=== PATIENT | female | born 1935 | race Caucasian/White ===

== ENCOUNTER 2018-03-30 10:44 | Inpatient (IN) | payer MEDICARE ==
[~2018-03-30] VITALS: Ht 160 cm; Wt 73.0 kg
[2018-03-30] MEDS ORDERED: BACITRACIN ZINC OINT 500U/GM, 0.9 GM ONE (10:59)
[2018-03-30] MEDS ORDERED: DIPH,PERTUSS(ACELL),TET VAC/PF 0.5 ML IM-VACC ONE ×2 (10:59→12:00)
[2018-03-30] MEDS ORDERED: DIPHTHERIA-TETANUS ADULT 0.5ML IM-VACC ONE (11:00)
[2018-03-30] MEDS ORDERED: SODIUM CHLORIDE FLUSH 10ML SYR IVF ONE (11:00)
[2018-03-30 11:50] LABS: BASOPHILS # (AUTO) 0.01 x10^3/uL (0-0.1); BASOPHILS % (AUTO) 0 % (0-1); EOSINOPHILS # (AUTO) 0.13 x10^3/uL (0-0.4); EOSINOPHILS % (AUTO) 1 % (1-7); LYMPHOCYTES # (AUTO) 1.91 x10^3/uL (1-3.4); LYMPHOCYTES % (AUTO) 14 % (22-44); MD NO; MEAN CORPUSCULAR HEMOGLOBIN 30.5 pg (27.0-34.8); MEAN CORPUSCULAR HGB CONC 33.4 g/dL (32.4-35.8); MEAN CORPUSCULAR VOLUME 91.4 fL (80-100); MEAN PLATELET VOLUME 9.3 fL (7.4-10.4); MONOCYTES # (AUTO) 0.37 x10^3/uL (0.2-0.8); MONOCYTES % (AUTO) 3 % (2-9); NEUTROPHILS # (AUTO) 11.23 x10^3/uL (1.8-6.8); NEUTROPHILS % (AUTO) 82 % (42-75); PLATELET COUNT 175 x10^3/uL (130-400); RED BLOOD COUNT 5.43 x10^6/uL (3.82-5.3); RED CELL DISTRIBUTION WIDTH 13.9 % (9.6-15.2)
[2018-03-30 11:56] LABS: INTERNATIONAL NORMALIZED RATIO 1.03 (0.93-1.1); PROTHROMBIN TIME 10.9 Seconds (9.6-11.5)
[2018-03-30 11:57] LABS: ALBUMIN 3.4 g/dL (3.4-5.0); ANION GAP 4 mmol/L (5-15); CHLORIDE 107 mmol/L (98-107); CREATININE 0.83 mg/dL (0.55-1.02)
[2018-03-30 12:00] VITALS: BP 162/79
[2018-03-30] MEDS ORDERED: GABAPENTIN 300 MG CAPSULE PO PRN (12:30)
[2018-03-30] MEDS ORDERED: morphine SULFATE 10 MG/ML, 1ML IVPush PRN (12:30)
[2018-03-30] MEDS ORDERED: ENALAPRILAT 1.25 MG/ML, 2ML IVPush PRN (12:30)
[2018-03-30] MEDS ORDERED: ACETAMINOPHEN 325 MG TABLET PO PRN (12:30)
[2018-03-30] MEDS ORDERED: LIDODERM 5% PATCH TD PRN (12:30)
[2018-03-30 12:55] VITALS: BP 162/79
[2018-03-30] MEDS: HEPARIN 5,000 UNITS/ML, 1ML SQ SCH ×2 (13:55→20:05)
[2018-03-30] MEDS: SODIUM CHLORIDE 0.9% 1,000 ML IV SCH (13:55)
[2018-03-30 15:50] VITALS: BP 169/79
[2018-03-30] MEDS: OXYcodone IR 5MG TABLET PO PRN ×2 (16:23→17:31)
[2018-03-30 18:35] VITALS: BP 146/76
[2018-03-30] MEDS ORDERED: BUPIVACAINE/PF-EPI 0.5% 1:200K ONE (20:21)
[2018-03-30] MEDS ORDERED: FENTANYL PF 100 MCG/2ML ONE ×2 (20:36→21:41)
[2018-03-30] MEDS ORDERED: ALBUTEROL/IPRATROPIUM 2.5MG/0.5MG, 3 ML NPPB PRN (21:00)
[2018-03-30] MEDS ORDERED: HYDROmorphone 2 MG/ML, 1ML IV PRN (21:00)
[2018-03-30] MEDS ORDERED: OXYcodone 5 MG/5 ML ORAL.SOL UDC PO PRN (21:00)
[2018-03-30] MEDS ORDERED: hydrALAzine 20 MG/ML, 1ML IV PRN (21:00)
[2018-03-30] MEDS ORDERED: PROCHLORPERAZINE 5 MG/ML, 2ML IV PRN (21:00)
[2018-03-30] MEDS ORDERED: LABETALOL 5MG/ML, 20ML IV PRN (21:00)
[2018-03-30] MEDS ORDERED: MEPERIDINE/PF 25MG/0.5ML IVPush PRN (21:00)
[2018-03-30] MEDS ORDERED: FENTANYL PF 100 MCG/2ML IV PRN (21:00)
[2018-03-30] MEDS ORDERED: DIPHENHYDRAMINE 50 MG/ML, 1ML IVPush PRN (21:00)
[2018-03-30] MEDS ORDERED: ESMOLOL 100 MG/10 ML ONE (21:05)
[2018-03-30] MEDS ORDERED: NEOSPORIN OINT, 15GM ONE (21:32)
[2018-03-30] MEDS ORDERED: ONDANSETRON 2MG/ML, 2ML ONE (22:19)
[2018-03-30] MEDS ORDERED: PROPOFOL 10 MG/ML, 20ML ONE (22:19)
[2018-03-30] MEDS ORDERED: GLYCOPYRROLATE 0.2MG/1ML, 5ML ONE (22:19)
[2018-03-30] MEDS ORDERED: DEXAMETHASONE 4 MG/ML, 1ML ONE (22:19)
[2018-03-30] MEDS ORDERED: NEOSTIGMINE 1 MG/ML, 10ML ONE (22:19)
[2018-03-30] MEDS ORDERED: SUCCINYLCHOLINE 20 MG/ML, 10ML ONE (22:19)
[2018-03-30] MEDS ORDERED: CEFAZOLIN 1,000 MG ONE (22:19)
[2018-03-30] MEDS ORDERED: ROCURONIUM 10MG/ML,5ML ONE (22:19)
[2018-03-30] MEDS ORDERED: OXYcodone 5 MG/5 ML ORAL.SOL UDC ONE (22:58)
[2018-03-31 00:21] VITALS: BP 117/73
[2018-03-31] MEDS: SODIUM CHLORIDE 0.9% 1,000 ML IV SCH ×3 (01:21→21:08)
[2018-03-31 04:00] VITALS: BP 96/58
[2018-03-31] MEDS ORDERED: CEFAZOLIN PMX 2GM/50ML 50 ML IVPB SCH (04:00)
[2018-03-31] MEDS: HEPARIN 5,000 UNITS/ML, 1ML SQ SCH ×3 (04:26→21:35)
[2018-03-31] MEDS ORDERED: CARB1DRO14 EACHEYE (04:47)
[2018-03-31 05:48] LABS: BASOPHILS # (AUTO) 0.01 x10^3/uL (0-0.1); BASOPHILS % (AUTO) 0 % (0-1); EOSINOPHILS # (AUTO) 0.01 x10^3/uL (0-0.4); EOSINOPHILS % (AUTO) 0 % (1-7); LYMPHOCYTES # (AUTO) 0.86 x10^3/uL (1-3.4); LYMPHOCYTES % (AUTO) 6 % (22-44); MD NO; MEAN CORPUSCULAR HEMOGLOBIN 31.1 pg (27.0-34.8); MEAN CORPUSCULAR HGB CONC 33.5 g/dL (32.4-35.8); MEAN CORPUSCULAR VOLUME 92.7 fL (80-100); MEAN PLATELET VOLUME 9.7 fL (7.4-10.4); MONOCYTES # (AUTO) 0.53 x10^3/uL (0.2-0.8); MONOCYTES % (AUTO) 4 % (2-9); NEUTROPHILS # (AUTO) 12.42 x10^3/uL (1.8-6.8); NEUTROPHILS % (AUTO) 90 % (42-75); PLATELET COUNT 160 x10^3/uL (130-400); RED CELL DISTRIBUTION WIDTH 13.9 % (9.6-15.2)
[2018-03-31 05:59] LABS: ALBUMIN 2.7 g/dL (3.4-5.0); ANION GAP 7 mmol/L (5-15); CALCIUM 7.7 mg/dL (8.5-10.1); CHLORIDE 108 mmol/L (98-107)
[2018-03-31 06:02] LABS: ALANINE AMINOTRANSFERASE 23 U/L (12-78); ALKALINE PHOSPHATASE 60 U/L (45-117); BILIRUBIN,TOTAL 0.5 mg/dL (0.2-1.0); CREATININE 0.97 mg/dL (0.55-1.02); TOTAL PROTEIN 6.3 g/dL (6.4-8.2)
[2018-03-31 06:37] VITALS: BP 102/61
[2018-03-31] MEDS: NICOTINE 21 MG/24 HR PATCH.TD24 TD SCH (09:01)
[2018-03-31] MEDS: ONDANSETRON 2MG/ML, 2ML IVPush PRN ×2 (10:16→17:33)
[2018-03-31] MEDS: OXYcodone IR 5MG TABLET PO PRN ×4 (11:36→21:35)
[2018-03-31] MEDS ORDERED: CEFAZOLIN 2,000 MG in SODIUM CHLORIDE 0.9% 50 ML IVPB SCH (13:00)
[2018-03-31 13:38] VITALS: BP 123/68
[2018-03-31 18:35] VITALS: BP 104/61
[2018-04-01 00:34] VITALS: BP 119/63
[2018-04-01] MEDS: HEPARIN 5,000 UNITS/ML, 1ML SQ SCH (04:37)
[2018-04-01] MEDS: OXYcodone IR 5MG TABLET PO PRN (04:41)
[2018-04-01 05:19] LABS: BASOPHILS # (AUTO) 0.02 x10^3/uL (0-0.1); BASOPHILS % (AUTO) 0 % (0-1); EOSINOPHILS # (AUTO) 0.12 x10^3/uL (0-0.4); EOSINOPHILS % (AUTO) 1 % (1-7); LYMPHOCYTES # (AUTO) 1.31 x10^3/uL (1-3.4); LYMPHOCYTES % (AUTO) 14 % (22-44); MD NO; MEAN CORPUSCULAR HEMOGLOBIN 30.6 pg (27.0-34.8); MEAN CORPUSCULAR VOLUME 92.9 fL (80-100); MEAN PLATELET VOLUME 10.1 fL (7.4-10.4); MONOCYTES % (AUTO) 10 % (2-9); NEUTROPHILS # (AUTO) 7.08 x10^3/uL (1.8-6.8); NEUTROPHILS % (AUTO) 75 % (42-75); PLATELET COUNT 136 x10^3/uL (130-400); RED BLOOD COUNT 3.94 x10^6/uL (3.82-5.3); RED CELL DISTRIBUTION WIDTH 14.3 % (9.6-15.2)
[2018-04-01 07:24] VITALS: BP 110/66
[2018-04-01] MEDS ORDERED: LACTULOSE 20 GM/30 ML UDC PO PRN (07:30)
[2018-04-01] MEDS: ENOXAPARIN 40 MG/0.4 ML SQ SCH (09:22)
[2018-04-01] MEDS: DOCUSATE 100 MG CAPSULE PO SCH (09:22)
[2018-04-01] MEDS: NICOTINE 21 MG/24 HR PATCH.TD24 TD SCH (09:23)
[2018-04-01 14:51] VITALS: BP 116/71
[2018-04-01 18:53] VITALS: BP 111/71
[2018-04-01] MEDS: SENNA/DOCUSATE TABLET PO SCH (20:27)
[2018-04-02 01:13] VITALS: BP 110/70
[2018-04-02 07:36] VITALS: BP 128/83
[2018-04-02] MEDS: DOCUSATE 100 MG CAPSULE PO SCH (08:55)
[2018-04-02] MEDS: ENOXAPARIN 40 MG/0.4 ML SQ SCH (08:55)
[2018-04-02] MEDS: NICOTINE 21 MG/24 HR PATCH.TD24 TD SCH (08:57)
[2018-04-02] MEDS: MAGNESIUM HYDROXIDE 8%, 30ML UDC PO SCH (12:24)
[2018-04-02 12:25] VITALS: BP 145/74
[2018-04-02 18:37] VITALS: BP 93/63
[2018-04-02] MEDS: SENNA/DOCUSATE TABLET PO SCH (19:38)
[2018-04-03 01:31] VITALS: BP 119/63
[2018-04-03 07:09] VITALS: BP 174/79
[2018-04-03] MEDS: MAGNESIUM HYDROXIDE 8%, 30ML UDC PO SCH (09:00)
[2018-04-03] MEDS: DOCUSATE 100 MG CAPSULE PO SCH (09:00)
[2018-04-03] MEDS: NICOTINE 21 MG/24 HR PATCH.TD24 TD SCH (09:22)
[2018-04-03] MEDS: ENOXAPARIN 40 MG/0.4 ML SQ SCH (09:22)
[2018-04-03] MEDS ORDERED: DOCU-131 PO (12:05)
[2018-04-03] MEDS ORDERED: ENOX40SY4 SQ (12:05)
[2018-04-03] MEDS ORDERED: ACET325T14 PO (12:05)
[2018-04-03] MEDS ORDERED: GABA300C10 PO (12:05)
[2018-04-03] MEDS ORDERED: LIDO700A20 TD (12:05)
[2018-04-03] MEDS ORDERED: NICO-487 TD (12:05)
[2018-04-03 12:48] VITALS: BP 117/73
== END 2018-04-03 16:00 | DRG 480 ==
LOC: ED 10:55 → EDIP 11:44 → UNDOADMIN 12:07 → EDIP 12:07 → 4NOR 13:15
PROVIDERS: ADMIT Hospitalist; ATTEND Hospitalist
PROC: 0QS606Z Reposition Right Upper Femur with Intramedullary Internal Fixation Device, Open Approach (ICD-10-PCS; principal; 2018-03-30 21:00)
DX: S72.141A Displaced intertrochanteric fracture of right femur, initial encounter for closed fracture (principal); J96.01 Acute respiratory failure with hypoxia; I73.9 Peripheral vascular disease, unspecified; E04.1 Nontoxic single thyroid nodule; D75.1 Secondary polycythemia; I71.4 Abdominal aortic aneurysm, without rupture; D72.829 Elevated white blood cell count, unspecified; W18.39XA Other fall on same level, initial encounter; I10 Essential (primary) hypertension; K59.00 Constipation, unspecified; F17.210 Nicotine dependence, cigarettes, uncomplicated; M48.02 Spinal stenosis, cervical region; R73.03 Prediabetes; S09.90XA Unspecified injury of head, initial encounter; Y92.009 Unspecified place in unspecified non-institutional (private) residence as the place of occurrence of the external cause; Z71.6 Tobacco abuse counseling; Y93.89 Activity, other specified; Z88.2 Allergy status to sulfonamides
CPT/HCPCS: 36415; 70450; 71045; 72125; 76001; 80048; 80053; 82040; 83036; 84443; 85025; 85610; 90471; 90714; 93005; 97163; 99285; C1713; G0378; J0690; J1100; J1644; J1650; J2405; J2704; J2710; J3010; J3490; J0330; J2270; J7030

== ENCOUNTER 2020-12-11 06:22 | Observation (INO) | payer MEDICARE ==
[~2020-12-11] VITALS: Ht 157.5 cm; Wt 74.2 kg
[~2020-12-11 06:22] MED LIST: ACET325T14 PO; CARB1DRO14 EACHEYE; DOCU-131 PO; ENOX40SY4 SQ; GABA300C10 PO; LIDO700A20 TD; NICO-587 TD
[2020-12-11 07:14] LABS: BASOPHILS % (AUTO) 1 % (0-1); EOSINOPHILS % (AUTO) 2 % (1-7); LYMPHOCYTES % (AUTO) 26 % (22-44); MEAN CORPUSCULAR HEMOGLOBIN 30.3 pg (27.0-34.8); MEAN CORPUSCULAR HGB CONC 33.3 g/dL (32.4-35.8); MONOCYTES % (AUTO) 12 % (2-9); NEUTROPHILS % (AUTO) 60 % (42-75); PLATELET COUNT 179 x10^3/uL (130-400); RED BLOOD COUNT 5.14 x10^6/uL (3.82-5.3); RED CELL DISTRIBUTION WIDTH 14.1 % (9.6-15.2)
--- NOTE | 2020-12-11 07:18 | NUR ---
ASSUMING CARE OF PATIENT AFTER BEDSIDE SHIFT CHANGE REPORT FROM PEDRO STEVENS. PT ASLEEP WITH EVEN AND UNLABORED RESPIRATIONS. VSS. PENNY.
[2020-12-11 07:26] LABS: ALBUMIN 3.1 g/dL (3.4-5.0); ANION GAP 3 mmol/L (5-15); CALCIUM 8.7 mg/dL (8.5-10.1); CHLORIDE 109 mmol/L (98-107)
[2020-12-11 07:32] LABS: ALANINE AMINOTRANSFERASE 91 U/L (12-78); ALKALINE PHOSPHATASE 85 U/L (45-117); BILIRUBIN,TOTAL 0.4 mg/dL (0.2-1.0); CREATININE 0.78 mg/dL (0.55-1.02); TOTAL PROTEIN 7.1 g/dL (6.4-8.2); TROPONIN I 0.028 ng/mL (0.000-0.045)
--- NOTE | 2020-12-11 08:17 | NUR ---
PT ASLEEP WITH EVEN AND UNLABORED RESPIRATIONS.VSS. PEDRO LUISN
--- NOTE | 2020-12-11 09:24 | NUR ---
DR. GUIDRY [facility] TO BEDSIDE FOR EVALUATION.
--- NOTE | 2020-12-11 10:48 | NUR ---
PT PROVIDED WITH MEAL TRAY. VSS. PENNY. DAUGHTER AT BEDSIDE
[2020-12-11] MEDS ORDERED: GUAIFENESIN/DM 200-20MG, 10ML UDC PO PRN (11:00)
[2020-12-11] MEDS ORDERED: ACETAMINOPHEN 325 MG TABLET PO PRN (11:00)
[2020-12-11] MEDS ORDERED: hydrALAzine 20 MG/ML, 1ML IVPush PRN (11:00)
[2020-12-11] MEDS ORDERED: BUTALB/APAP/CAFFEINE 50MG/325MG/40MG PO PRN ×2 (11:00)
[2020-12-11] MEDS ORDERED: BACLOFEN 10 MG TABLET PO PRN (11:00)
[2020-12-11] MEDS ORDERED: ONDANSETRON 2MG/ML, 2ML IVPush PRN (11:00)
[2020-12-11] MEDS ORDERED: ONDANSETRON ODT 4 MG PO PRN (11:00)
[2020-12-11] MEDS ORDERED: ENALAPRILAT 1.25 MG/ML, 2ML IVPush PRN (11:00)
[2020-12-11] MEDS ORDERED: ENOXAPARIN 40 MG/0.4 ML SQ SCH (11:00)
--- NOTE | 2020-12-11 12:15 | NUR ---
pt resting in bed. vsandrews. brenda.
--- NOTE | 2020-12-11 12:31 | NUR ---
REPORT CALLED TO ORIN STEVENS.
[2020-12-11 13:16] VITALS: BP 101/63
[2020-12-11 15:33] LABS: TROPONIN I 0.022 ng/mL (0.000-0.045)
[2020-12-11] MEDS ORDERED: ISOS30TA8 PO (16:12)
[2020-12-11] MEDS ORDERED: ATOR20TA86 PO (16:12)
[2020-12-11] MEDS ORDERED: METO-282 PO (16:12)
[2020-12-11 18:36] VITALS: BP 118/74
[2020-12-11] MEDS ORDERED: MELATONIN 5 MG TABLET PO SCH (21:00)
[2020-12-12 02:00] VITALS: BP 110/70
[2020-12-12 05:20] LABS: BASOPHILS % (AUTO) 1 % (0-1); EOSINOPHILS % (AUTO) 2 % (1-7); LYMPHOCYTES % (AUTO) 28 % (22-44); MEAN CORPUSCULAR HEMOGLOBIN 30.8 pg (27.0-34.8); MEAN CORPUSCULAR HGB CONC 33.6 g/dL (32.4-35.8); MEAN PLATELET VOLUME 9.7 fL (7.4-10.4); MONOCYTES % (AUTO) 12 % (2-9); NEUTROPHILS % (AUTO) 58 % (42-75); PLATELET COUNT 162 x10^3/uL (130-400); RED BLOOD COUNT 4.77 x10^6/uL (3.82-5.3); RED CELL DISTRIBUTION WIDTH 14.3 % (9.6-15.2)
[2020-12-12 05:31] LABS: CALCIUM 8.6 mg/dL (8.5-10.1); CHLORIDE 108 mmol/L (98-107); CREATININE 0.87 mg/dL (0.55-1.02)
[2020-12-12 05:33] LABS: ANION GAP < 1 mmol/L (5-15)
[2020-12-12 08:46] VITALS: BP 124/75
[2020-12-12] MEDS ORDERED: SENNA/DOCUSATE TABLET PO SCH (09:00)
[2020-12-12 15:14] VITALS: BP 117/75
== END 2020-12-12 17:14 | disposition home or self-care (01) ==
LOC: ED 09:47 → INTOOBSV 10:39 → EDIP 10:39 → 5SO 12:45
PROVIDERS: ADMIT Family Medicine; ATTEND Family Medicine
DX: R07.89 Other chest pain (principal); I25.10 Atherosclerotic heart disease of native coronary artery without angina pectoris; J96.01 Acute respiratory failure with hypoxia; E78.5 Hyperlipidemia, unspecified; I10 Essential (primary) hypertension; E78.00 Pure hypercholesterolemia, unspecified; J98.11 Atelectasis; J44.9 Chronic obstructive pulmonary disease, unspecified; I25.2 Old myocardial infarction; F17.200 Nicotine dependence, unspecified, uncomplicated; Z79.899 Other long term (current) drug therapy
CPT/HCPCS: 36415; 71045; 80048; 80053; 83735; 84484; 85025; 93005; 96372; 97161; 97165; 99285; G0378; J1650